=== PATIENT | male | born 1965 | race Caucasian/White ===

== ENCOUNTER 2020-08-19 07:52 | Outpatient (CLI) | payer BC, SELFPAY | END 2020-08-19 07:53 | disposition home or self-care (01) | PROVIDERS: PCP Physician Assistant; Visit Provider Physician Assistant | DX: H90.3 Sensorineural hearing loss, bilateral (principal) | CPT/HCPCS: 92557; 92567 ==

== ENCOUNTER 2021-10-13 00:14 | Day surgery (SDC) | payer OTHER, SELFPAY ==
[2021-10-03 11:18] VITALS: BMI 28.3
--- NOTE | 2021-10-12 11:16 | PM.HPGS ---
History of Present Illness History of Present Illness Consent: Risks, benefits, and alternatives have been discussed and questions answered. Patient agrees to proceed with procedure. Chief complaint: neoplasm screening Narrative: Omer Pond is a 56 year old male referred for colon cancer screening. Review of Systems Review of Systems: All systems reviewed & are unremarkable except as noted in HPI and below PMFSH Past Medical History Medical History Hx of blastomycosis Surgical History Surgical History H/O wrist surgery Hx of appendectomy Hx of splenectomy Family History Family History Mother Family history of arthritis Dementia Sibling Family history of arthritis, Onset Age: 59 Father Alzheimer disease Social History Social History Smoking packs per day: 0.5 Smoking cigarettes per day: 10.0 Smoking status: Current every day smoker Tobacco type: cigarettes Second hand tobacco smoke exposure: No Smoking end date: 07/05/07 Alcohol intake: current Alcohol use details: 2 drinks monthly Substance use: never Living arrangements: with family Meds Home Medications and Allergies Home Medications Medication Instructions Recorded Confirmed Type pseudoephedrine-ibuprofen 30 1 cap PO DAILY PRN 08/01/19 10/03/21 History mg-200 mg capsule atorvastatin 10 mg tablet 10 mg PO DAILY #90 tablet 09/09/21 10/03/21 Rx Allergies Allergy/AdvReac Type Severity Reaction Status Date / Time shellfish derived Allergy Unknown unknown Verified 10/13/21 11:04 iodine Allergy unknow Verified 10/13/21 11:04 Exam Resp: Auscultation: clear to auscultation bilaterally Cardio: Rate: regular rate Rhythm: regular rhythm GI: GI Palp: Yes Soft to palpation and No Tenderness to palpation present (GI) Assessment and Plan Assessment and plan (1) Colon cancer screening: Code(s): Z12.11 - Encounter for screening for malignant neoplasm of colon Status: Acute Assessment and Plan: Colonoscopy with possible biopsy or polypectomy or cautery or injection of substances.
[2021-10-13 11:05] VITALS: BP 126/71; PULSE 88; RESP 20; TEMP 37.1; O2SAT 97; BMI 26.2
[2021-10-13] MEDS: LACTATED RINGERS 1,000 ML 150 ML IV CONT (11:11)
--- NOTE | 2021-10-13 11:28 | WPDANESEPPF ---
Anes - Initial Pre Proc Eval Procedure: Operation Date: 10/13/21 12:30 Proposed Procedures p Screening Colonoscopy - Hiram Booth MD Date/Time: 10/13/21 11:28 Surgeon: Hiram Booth MD Pre Op Diagnosis: neoplasm screening Patient Data Age: 56 Gender: M Height: 1.7 m Weight: 76 kg Last Vital Signs Temp 98.7 F 10/13/21 11:05 Pulse 88 10/13/21 11:05 Resp 20 10/13/21 11:05 BP 126/71 10/13/21 11:05 Pulse Ox 97 10/13/21 11:05 Allergies Allergy/AdvReac Type Severity Reaction Status Date / Time shellfish derived Allergy Unknown unknown Verified 10/13/21 11:04 iodine Allergy unknow Verified 10/13/21 11:04 Home Medications Medication Instructions Recorded Confirmed Type pseudoephedrine-ibuprofen 30 1 cap PO DAILY PRN 08/01/19 10/03/21 History mg-200 mg capsule atorvastatin 10 mg tablet 10 mg PO DAILY #90 tablet 09/09/21 10/03/21 Rx Patient hx anesthesia problems: none Family hx anesthesia problems: none Results Review: All pre-operative results and documents have been reviewed as part of the pre-operative evaluation. [facility] Past Medical History Medical History (Updated 10/12/21 @ 11:17 by Hiram Booth MD) Hx of blastomycosis Surgical History Surgical History H/O wrist surgery Hx of appendectomy Hx of splenectomy Family History Family History Mother Family history of arthritis Dementia Sibling Family history of arthritis, Onset Age: 59 Father Alzheimer disease Social History Social History Smoking packs per day: 0.5 Smoking cigarettes per day: 10.0 Smoking status: Current every day smoker Tobacco type: cigarettes Second hand tobacco smoke exposure: No Smoking end date: 07/05/07 Alcohol intake: current Alcohol use details: 2 drinks monthly Substance use: never Living arrangements: with family Anes - Eval Final PreProcedure Day of Procedure 10/13/21 11:28 Patient weight: normal Heart: regular rate and rhythm Lungs: clear to auscultation Airway: Mallampati scale class II Neurological: alert and oriented Last oral intake: >/= 8 hours ASA classification: II Anesthetic plan: proceed Anesthesia type and monitoring: general GIVS and standard monitoring Results Review: All pre-operative results and documents have been reviewed as part of the pre-operative evaluation. Informed Consent: The patient's anesthetic plan and its attendant risks and benefits were discussed with the patient/family/POA. Questions were solicited and answers provided to the satisfaction of the patient/family/POA.
[2021-10-13] MEDS: SIMETHICONE ORAL SUSPENSION 20 MG/0.3 ML 30 ML BOTTLE 0.6 ML IRRIGATION (12:17)
[2021-10-13 12:26] VITALS: BP 110/68; PULSE 74; RESP 24; O2SAT 96
[2021-10-13 12:36] VITALS: BP 115/73; PULSE 73; RESP 20; O2SAT 97
[2021-10-13 12:46] VITALS: BP 140/85; PULSE 65; RESP 23; O2SAT 97
== END 2021-10-13 12:55 | disposition home or self-care (01) ==
PROVIDERS: PCP Physician Assistant; Visit Provider Internal Medicine Gastroenterology
PROC: 0DJD8ZZ Inspection of Lower Intestinal Tract, Via Natural or Artificial Opening Endoscopic (ICD-10-PCS; CPT 45378; principal; 2021-10-13 12:30)
DX: Z12.11 Encounter for screening for malignant neoplasm of colon (principal); D12.4 Benign neoplasm of descending colon; F17.210 Nicotine dependence, cigarettes, uncomplicated
CPT/HCPCS: 45385; 88305; J2704; J7120